=== PATIENT | female | born 2005 | race Caucasian/White ===

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

== ENCOUNTER 2025-06-12 14:39 | Emergency (ER) | payer BC, OTHER, SELFPAY ==
[2025-06-12 14:50] VITALS: BP 133/73; PULSE 72; RESP 18; TEMP 36.8; O2SAT 100; BMI 25.6
--- NOTE | 2025-06-12 15:03 | XR_ITS ---
FINAL REPORT CLINICAL HISTORY: left wrist/hand pain FINDINGS: LEFT WRIST Three views demonstrate no acute fracture or dislocation. The visualized joint spaces are normally aligned. The soft tissues are unremarkable. IMPRESSION: No acute bony abnormality. Reviewed, Interpreted and Dictated by Isamar Hernández MD Transcribed by Amy Ochoa Authenticated and . [facility]
--- NOTE | 2025-06-12 15:03 | XR_ITS ---
FINAL REPORT CLINICAL HISTORY: left wrist/hand pain FINDINGS: LEFT HAND Three views demonstrate no acute fracture or dislocation. The visualized joint spaces are normally aligned. The soft tissues are unremarkable. IMPRESSION: No acute process. Reviewed, Interpreted and Dictated by Isamar Hernández MD Transcribed by Amy Ochoa Authenticated and [facility]
--- NOTE | 2025-06-12 16:31 | PC.NURSE ---
TUCKER PEREZ AT BEDSIDE
--- NOTE | 2025-06-12 16:36 | ED_ITS ---
<Statement entered by Tai Pittman DO - 06/13/25 00:29> I was consulted by the YIN, and we discussed the complexity of problems being addressed. I approved the treatment and management plan for this patient's care in the emergency department, thus performing a substantive portion of the medical decision making. Tai Pittman DO Discharge Plan Disposition Patient Disposition: Home, Self-Care Condition: Good Prescriptions Prescriptions: New prednisone 20 mg tablet 20 mg PO DAILY Qty: 10 0RF No Action prednisone 10 mg tablet 10 mg PO BID 3 Days Qty: 6 0RF amoxicillin 875 mg tablet 875 mg PO Q12H Qty: 20 0RF [id number]-[id number]-[id number] [Bromfed DM] 2-30-10 mg/5 mL Syrup 5 ml PO Q6H PRN (Reason: Cough) Qty: 240 0RF Referrals Follow up/Referrals: Reese Ramirez DO [Staff Physician, Orthopedics] - See instructions Mike Mark MD [Primary Care Provider, Medical] - See instructions Activity Restrictions/Add. Instructions Additional Instructions/Restrictions: Please return to the emergency department with any worsening signs or symptoms. Please utilize your wrist brace as needed, I recommend ibuprofen Tylenol, please take your steroid medication with food once daily for 10 days. Please follow-up with orthopedic doctor in the upcoming days/weeks. Clinical Impressions Clinical Impression: Wrist pain, Carpal tunnel syndrome Instructions Patient Instructions: DI for Carpal Tunnel Syndrome, DI for Wrist Pain Print Language Print Language: Niuean Discharge ED Provider: Tai Pittman General Adult HPI General Chief complaint: PAIN Stated complaint: Pain in L hand Time Seen by Provider: 06/12/25 15:43 Mode of Arrival: Ambulatory Source of Information: Patient Limitations: No Limitations Description of Symptoms (Recalled from ER Triage Doc. by RN): Pt presents for evaluation of left hand/wrist pain. Pt denies any known injuries but does heavy lifting at work and has a hx of injuries to her left wrist History of Present Illness HPI narrative: 20-year-old female presents the emergency department with left wrist pain, for 1 week, after carrying some heavy boxes , at work, repetitively last week, patient states that she has associated numbness and tingling of her 3rd and 4th digits, denies any upper or lower extremity weakness, denies any other acute injury, denies any fever chills chest pain, no neck pain, no radicular symptomatology, no saddle anesthesia, no urinary bladder or bowel dysfunction, shortness of breath nausea vomiting constipation diarrhea no abdominal pain, no other acute symptomatology, patient has no other real relevant past medical history, denies any alcohol tobacco or drug use. Initial triage vitals un remarkable. Please note that above description of symptoms, in this electronic medical record under categorization of recalled from ER triage doctor by RN are reflective of an initial nursing assessment, however, is not reflective of my full history and physical exam that was personally taken and clarified. Consequentially, this preceding description of symptoms, which may include the patient's categorized chief complaint in the EMR, do not reflect my personal clinical impression, and the ultimate description of history of present illness and patient stated complaints should be deferred to this section of the note. Unless stated otherwise or congruent with this section of the note, additional signs, symptoms, or incongruence should be interpreted as inaccurate with my clinical impression. Onset (ago): week(s) Related Data Previous Rx's ?Medication ?Instructions ?Recorded amoxicillin 875 mg tablet 875 mg PO Q12H #20 tabs 07/07 01/26 qcyyyfsphzquomm-ogtyzkhoyvinfnn-MP 5 ml PO Q6H PRN Cou gh #240 mL 07/30/24 2 mg-30 mg-10 mg/5 mL oral syrup (Bromfed DM) prednisone 10 mg tablet 10 mg PO BID 3 days #6 tabs 07/30/24 prednisone 20 mg tablet 20 mg PO DAILY #10 tabs 04/29 Allergies Allergy/AdvReac Type Severity Reaction Status Date / Time No Known Allergies Allergy Verified 05/17/19 09:22 [facility] Disclaimer: The information contained in this section may have been updated after the patient was seen, as this information can be updated by other users. Medical History (Updated 06/12/25 @ 16:49 by JOSHUA Vega) Anxiety Asthma Social History (Updated 07/30/24 @ 14:02 by Jc Hargrove APRN) Smoking Status: Never smoker alcohol intake: never current occupational status: student Travel in the last 8 weeks?: None Have you lived/traveled outside [place] in past 30 days?: No Contact w/someone who lives/traveled outside [place] past 30 days?: No Exposure to someone with infectious disease in past 14 days?: No Do you have a fever (greater than 100.4 F or 38 C)?: No Have you tested positive for COVID-19?: No Exposed to someone with COVID-19 in past 14 days?: No Do you have a sore throat?: No Do you have a cough?: No Do you have any weakness?: No Do you have any diarrhea?: No Are you experiencing any unusual bleeding?: No Do you have any muscle aches/pain?: No Do you have any abdominal pain?: No Are you experiencing loss of taste or smell?: No Other Medical History Have you received the Pneumonia Vaccine: No ROS Obtained: Yes All systems reviewed & no additional complaints except as documented Physical Exam General General appearance: alert and in no apparent distress Head Head exam: atraumatic and normocephalic Eye Eye exam: Present PERRL and EOMI ENT ENT exam: Present mucous membranes moist Neck Neck exam: Present normal inspection Chest Chest inspection: Present normal inspection and symmetric chest wall rise Respiratory Respiratory exam: Present normal lung sounds bilaterally; Absent respiratory distress Cardiovascular Cardiovascular exam: Present regular rate and normal rhythm Abdominal Exam Abdominal exam: Present soft; Absent tenderness, guarding or rebound Extremities Exam Extremities exam: Present normal inspection, full ROM, tenderness and other (Good finger opposition, Tinels test is positive, Phalen's test is positive, otherwise neurovascular intact, good strength with block piler strength, no real anatomical snuffbox tenderness.) Neurological Exam Neurological exam: Present alert and oriented X3 Psychiatric Psychiatric exam: Present normal affect Skin Skin exam: Present warm and dry Medical Decision Making Medical Records Medical records reviewed: Yes I reviewed the patient's medical records. Screening: Per USPSTF and CDC recommendations, given the prevalence of disease in our region, it is our hospital?s policy to screen for HIV and viral Hepatitis for all patients aged 18 and over and those with ongoing risk factors. K[place] Inquiry Pt receiving controlled substance: No Kannan was queried for this patient: No Vital Signs: 06/12/25 14:50 Temperature 98.3 F Temperature Source Oral Pulse Rate [Right] 72 Respiratory Rate 18 Blood Pressure [Right Arm] 133/73 Blood Pressure Mean [Right Arm] 93 Blood Pressure Source [Right Arm] Automatic Cuff Blood Pressure Position [Right Arm] Sitting 02 Sat by Pulse Oximetry 100 Orders (Tests/Meds): ORDERS Category Date Time Status Wrist XR left minimum 3 views [XR wrist LT min 3V] Stat Exams 06/12/25 15:03 Completed XR hand LT min 3V Stat Exams 06/12/25 15:03 Completed Medical Decision Narrative: 20-year-old female presents to the emergency department with left wrist pain after overuse injury 1 week ago, differential diagnose include but not limited to, carpal tunnel syndrome, sprain/strain, fracture, hand sprain/strain, hand fracture, ulnar neuropathy, cubital tunnel syndrome, radial neuropathy. I discussed this patient's case with the attending physician Dr. Pittman Will obtain x-rays of the left wrist and left hand for further evaluation/characterization. I reviewed the patient's left wrist and left hand x-rays along with corresponding radiological reports. No acute bony abnormality. I believe the patient has some degree of carpal tunnel syndrome versus other cubital tunnel syndrome with repetitive overuse injury, positive Tinel's test and Phalen's test, patient has no other acute signs or symptoms, no fever no chills, no signs of flexor tenosynovitis, no erythema, no infectious type symptoms. I will treat the patient with prednisone 20 mg p.o. daily for 10 days, with wrist brace, as well as ibuprofen Tylenol rest ice. Patient follow- up with orthopedic physician in the upcoming days/weeks. Patient was given strict ED return precautions. Patient voiced understanding and agreement with current treatment plan/discharge plan. Critical Care Critical Care Time Critical Care Time: No
[2025-06-12 16:53] VITALS: BP 123/87; PULSE 88; RESP 18; TEMP 36.7; O2SAT 100
== END 2025-06-12 16:57 | disposition home or self-care (01) ==
PROVIDERS: Emergency Provider Student in an Organized Health Care Education/Training Program; PCP Family Medicine
DX: G56.02 Carpal tunnel syndrome, left upper limb (principal); M79.642 Pain in left hand
CPT/HCPCS: 73110; 73130; 99282; 99283